=== PATIENT | female | born 1935 | race Caucasian/White ===

== ENCOUNTER 2018-05-30 15:28 | Inpatient (IN) | payer MEDICARE, MEDICAID ==
[~2018-05-30] VITALS: Ht 165.1 cm; Wt 72.6 kg
[2018-05-30] MEDS ORDERED: Sodium Chloride 500ML 550 ML IV SCH (15:45)
--- NOTE | 2018-05-30 16:01 | Emergency Room Report ---
History of Present Illness General Chief Complaint: Headache Source: Patient Present Illness HPI The patient presents with headache and possible seizure that occurred yesterday. Patient denies pain at this time. She does admit to falling but denies head trauma. She apparently has recurrent falls. Also she has an uncontrolled tremor. There was not tonic clonic activity during or after the fall. No incontinence. According to the nurse's notes she has a history of multiple falls due to involuntary movements. They're questioning whether she might have possible seizures. She has easy loss of balance. Apparently when she does complain about pain it's in the back of her head according to RN notes from SNF. No fevers, NVD, dysuria, constipation, chest pain, palpitations, dyspnea, rashes. History of anemia and hypothyroidism. She was admitted in 2016 for a intertrochanteric fracture of the hip (left). At that time the history stated that she had had intraventricular hemorrhage and subarachnoid hemorrhage in the past. Allergies: Coded Allergies: No Known Allergies (Unverified , 05/30/18) Patient History Past Medical History: see triage record, old chart reviewed Past Surgical History: other - hip fx Social History: Denies: smoking, alcohol use, drug use Social History Narrative [facility] Now: No Reviewed Nursing Documentation: PMH: Agreed; PSxH: Agreed Nursing Documentation-PMH Past Medical History: No History, Except For Review of Systems All Other Systems: negative except mentioned in HPI Physical Exam Vital Signs Date Time Temp Pulse Resp B/P (MAP) Pulse Ox O2 Delivery O2 Flow Rate FiO2 05/30/18 15:24 77 19 149/80 98 Room Air Sp02 EP Interpretation: reviewed, normal General Appearance: well appearing, no apparent distress, GCS 15 Head: normocephalic, atraumatic Eyes: bilateral eye normal inspection, bilateral eye PERRL, bilateral eye EOMI ENT: moist mucus membranes Neck: supple Respiratory: lungs clear, normal breath sounds Cardiovascular #1: regular rate, rhythm Cardiovascular #2: 2+ radial (R) Gastrointestinal: normal inspection, normal bowel sounds, non tender, no mass, non-distended Musculoskeletal: back normal, gait/station normal, normal range of motion Neurologic: filer and sander III-XII nml as tested, motor strength/tone normal, DTRs symmetric, sensory intact, speech normal, other - choreaform movements of all extrem with intention, oriented - X2 Psychiatric: mood/affect normal Skin: normal inspection, warm/dry Medical Decision Making Diagnostic Impression: Primary Impression: NSTEMI (non-ST elevated myocardial infarction) Additional Impressions: UTI (urinary tract infection) Qualified Codes: N39.0 - Urinary tract infection, site not specified Chorea Multiple falls Headache Qualified Codes: R51 - Headache ER Course Patient presents with unsteady gait falling episodes headache. Differential includes Parkinson's, cerebellar stroke, cerebellar bleed, other forms of chorea , electrolyte abnormality amongst others. Patient needs evaluation with CT, chest x-ray, EKG and labs. The patient is not stable to be at the living facility where she came from needs more extensive neurologic evaluation however we need to exclude medical emergencies at this time. EKG is normal sinus rhythm rate 69 no acute findings. CXR no infiltrates. Labs with normal WBC, sl elevated chloride, high h/h. Lab called with minimally elevated troponin. Aspirin and nitro-bid given. Contacted by Dr. Holder's office who sent patient in. Discussed with Dr. Rose. Patient admitted SDU. Needs repeat troponins, cardiac echo and neurologic evaluation. Laboratory Tests Test 05/30/18 16:00 White Blood Count 9.5 K/UL (4.8-10.8) Red Blood Count 5.23 M/UL (4.20-5.40) Hemoglobin 16.1 G/DL (12.0-16.0) H Hematocrit 47.9 % (37.0-47.0) H Mean Corpuscular Volume 92 FL (80-99) Mean Corpuscular Hemoglobin 30.7 PG (27.0-31.0) Mean Corpuscular Hemoglobin Concent 33.5 G/DL (32.0-36.0) Red Cell Distribution Width 11.6 % (11.6-14.8) Platelet Count 194 K/UL (150-450) Mean Platelet Volume 7.4 FL (6.5-10.1) Neutrophils (%) (Auto) 54.2 % (45.0-75.0) Lymphocytes (%) (Auto) 35.0 % (20.0-45.0) Monocytes (%) (Auto) 5.8 % (1.0-10.0) Eosinophils (%) (Auto) 4.0 % (0.0-3.0) H Basophils (%) (Auto) 1.1 % (0.0-2.0) Urine Color Pale yellow Urine Appearance Clear Urine pH 6.5 (4.5-8.0) Urine Specific [place] 1.010 (1.005-1.035) Urine Protein Negative (NEGATIVE) Urine Glucose (UA) Negative (NEGATIVE) Urine Ketones Negative (NEGATIVE) Urine Occult Blood Negative (NEGATIVE) Urine Nitrite Negative (NEGATIVE) Urine Bilirubin Negative (NEGATIVE) Urine Urobilinogen Normal MG/DL (0.0-1.0) Urine Leukocyte Esterase 3+ (NEGATIVE) H Urine RBC 2-4 /HPF (0 - 2) H Urine WBC 15-20 /HPF (0 - 2) H Urine Squamous Epithelial Cells Occasional /LPF Urine Bacteria Few /HPF (NONE) Sodium Level 144 MMOL/L (136-145) Potassium Level 4.0 MMOL/L (3.5-5.1) Chloride Level 108 MMOL/L (98-107) H Carbon Dioxide Level 27 MMOL/L (21-32) Anion Gap 9 mmol/L (5-15) Blood Urea Nitrogen 18 mg/dL (7-18) Creatinine 1.0 MG/DL (0.55-1.30) Estimate Glomerular Filtration Rate mL/min (>60) Glucose Level 93 MG/DL (74-106) Lactic Acid Level 1.20 mmol/L (0.4-2.0) Calcium Level 9.6 MG/DL (8.5-10.1) Total Bilirubin 0.7 MG/DL (0.2-1.0) Aspartate Amino Transferase (AST) 19 U/L (15-37) Alanine Aminotransferase (ALT) 27 U/L (12-78) Alkaline Phosphatase 85 U/L (46-116) Ammonia 16 umol/L (11-32) Total Creatine Kinase 116 U/L (26-308) Troponin I 0.061 ng/mL (0.000-0.056) Total Protein 7.2 G/DL (6.4-8.2) Albumin 3.7 G/DL (3.4-5.0) Globulin 3.5 g/dL Albumin/Globulin Ratio 1.1 (1.0-2.7) Thyroid Stimulating Hormone (TSH) 0.677 uiU/mL (0.358-3.740) Salicylates Level 0.2 ug/mL (2.8-20) L Urine Opiates Screen Negative (NEGATIVE) Acetaminophen Level < 2 MCG/ML (10-30) L Urine Barbiturates Screen Negative (NEGATIVE) Phencyclidine (PCP) Screen Negative (NEGATIVE) Urine Amphetamines Screen Negative (NEGATIVE) Urine Benzodiazepines Screen Negative (NEGATIVE) Urine Cocaine Screen Negative (NEGATIVE) Urine Marijuana (THC) Screen Negative (NEGATIVE) Serum Alcohol < 3 mg/dL EKG Diagnostic Results Rate: normal Rhythm: NSR ST Segments: no acute changes Rhythm Strip Diag. Results EP Interpretation: yes Rhythm: NSR, no PVC's, no ectopy Chest X-Ray Diagnostic Results Chest X-Ray Diagnostic Results : Chest X-Ray Ordered: Yes # of Views/Limited/Complete: 1 View Indication: Other EP Interpretation: Yes Interpretation: no effusion, no pneumothorax, other - R mid lung increased vega Impression: Other Electronically Signed by: Electronically signed by Tyler Tadeo MD CT/MRI/US Diagnostic Results CT/MRI/US Diagnostic Results : Imaging Test Ordered: head Impression chronic changes Last Vital Signs Date Time Temp Pulse Resp B/P (MAP) Pulse Ox O2 Delivery O2 Flow Rate FiO2 05/31/18 00:00 Room Air 05/31/18 00:00 97.8 64 20 118/53 (57) 93 97.8 Status: improved Disposition: ADMITTED INPATIENT Condition: Serious Tyler Tadeo M.D. May 30, 2018 16:01
[2018-05-30 16:34] LABS: APPEARANCE,URINE CLEAR; BASOPHILS % (AUTO) 1.1 % (0.0-2.0); BILIRUBIN, URINE NEGATIVE (NEGATIVE); COLOR,URINE PALE YELLOW; GLUCOSE, URINE (UA) NEGATIVE (NEGATIVE); HEMATOCRIT 47.9 % (37.0-47.0); HEMOGLOBIN 16.1 G/DL (12.0-16.0); KETONES,URINE NEGATIVE (NEGATIVE); LEUKOCYTE ESTERASE ,URINE 3+ (NEGATIVE); MEAN CORPUSCULAR VOLUME 92 FL (80-99); MONOCYTES % (AUTO) 5.8 % (1.0-10.0); NEUTROPHILS % (AUTO) 54.2 % (45.0-75.0); NITRITE,URINE NEGATIVE (NEGATIVE); PH,URINE 6.5 (4.5-8.0); PLATELET COUNT 194 K/UL (150-450); PROTEIN,URINE NEGATIVE (NEGATIVE); RED BLOOD COUNT 5.23 M/UL (4.20-5.40); RED CELL DISTRIBUTION WIDTH 11.6 % (11.6-14.8); UROBILINOGEN,URINE NORMAL MG/DL (0.0-1.0); WHITE BLOOD COUNT 9.5 K/UL (4.8-10.8)
--- NOTE | 2018-05-30 16:43 | Diagnostic Imaging Report ---
Indication: Chest pain Technique: One view of the chest Comparison: none Findings: Heart size is normal. The aorta is tortuous an ectatic. Upper mediastinum is unremarkable. Impression: No acute process
--- NOTE | 2018-05-30 16:43 | Diagnostic Imaging Report ---
Indications: Altered level consciousness and headache Technique: Spiral acquisitions obtained through the brain. Angled axial and coronal 5 x 5 mm slices were reconstructed. Total dose length product 1386.03 mGycm. CTDI vol(s) 70.38 mGy. Dose reduction achieved using automated exposure control Comparison: None. Findings: There is slight degradation of image degradation due to motion artifact. No acute intracranial hemorrhage or edema, mass effect, nor midline shift. There is age-related enlargement of the ventricles and extra axial CSF spaces. There is mild periventricular deep white matter low-attenuation consistent with chronic ischemic change. The mastoids are clear. There is evidence of prior bilateral cataract surgery. The sinuses are clear. Impression: Chronic and age-related changes. Negative for acute intracranial bleed or mass effect The CT scanner at [facility] is accredited by the [employer] and the scans are performed using protocols designed to limit radiation exposure to as low as reasonably achievable to attain images of sufficient resolution adequate for diagnostic evaluation.
[2018-05-30 16:50] LABS: ANION GAP 9 mmol/L (5-15); BLOOD UREA NITROGEN 18 mg/dL (7-18); CALCIUM 9.6 MG/DL (8.5-10.1); CARBON DIOXIDE 27 MMOL/L (21-32); CHLORIDE 108 MMOL/L (98-107); SODIUM 144 MMOL/L (136-145)
[2018-05-30 16:53] LABS: AMMONIA 16 umol/L (11-32)
[2018-05-30 17:00] VITALS: BP 126/64
[2018-05-30 17:05] LABS: ALANINE AMINOTRANSFERASE 27 U/L (12-78); ALBUMIN 3.7 G/DL (3.4-5.0); ALBUMIN/GLOBULIN RATIO 1.1 (1.0-2.7); ALKALINE PHOSPHATASE 85 U/L (46-116); ASPARTATE AMINO TRANSFERASE 19 U/L (15-37); BILIRUBIN,TOTAL 0.7 MG/DL (0.2-1.0); CREATINE KINASE 116 U/L (26-308)
[2018-05-30] MEDS ORDERED: Nitroglycerin 2% oint pkt TOPIC ONE (17:15)
[2018-05-30] MEDS ORDERED: cefTRIAXone 1 GM in D5W 55 ML IVPB ONE (18:45)
[2018-05-30 19:00] VITALS: BP 130/76
[2018-05-30 19:05] VITALS: BP 157/73
[2018-05-30] MEDS ORDERED: COLACE100 MG ORAL (19:13)
[2018-05-30] MEDS ORDERED: CALCIUM 600 +1 EAC2 PO (19:13)
[2018-05-30] MEDS ORDERED: LYRICA75 M1 ORAL (19:13)
[2018-05-30] MEDS ORDERED: IRON325 M1 PO (19:13)
[2018-05-30] MEDS ORDERED: LEVOTHYROXINE125 MCG ORAL (19:13)
[2018-05-30] MEDS ORDERED: PEPCID AC20 M2 PO (19:13)
[2018-05-30] MEDS ORDERED: NAPROXEN250 MG ORAL (19:24)
[2018-05-30] MEDS ORDERED: GERI-DRYL25 M1 PO (19:24)
[2018-05-30] MEDS ORDERED: BISACODYL5 MG RECTAL (19:24)
[2018-05-30] MEDS ORDERED: ACETAMINOPHEN325 M1 ORAL (19:24)
[2018-05-30] MEDS ORDERED: TRAZODONE HCL50 MG ORAL (19:24)
[2018-05-30] MEDS ORDERED: ZOFRAN4 M3 ORAL (19:24)
[2018-05-30] MEDS ORDERED: TYLENOL EXTRA500 MG ORAL (19:24)
[2018-05-30 20:00] VITALS: BP 157/73
[2018-05-30] MEDS ORDERED: TraZODone HCl 25 mg tablet ORAL PRN (20:15)
--- NOTE | 2018-05-30 20:15 | Consultation ---
History of Present Illness General Chief Complaint: Headache Present Illness Allergies: Coded Allergies: No Known Allergies (Unverified , 05/30/18) Medication History Scheduled Docusate Sodium* (Colace*), 100 MG ORAL TWICE A DAY, (Reported) Famotidine (Pepcid Ac), 20 MG PO Q12HR, (Reported) Levothyroxine Sodium* (Levothyroxine Sodium*), 125 MCG ORAL ACBREAKFAST, ( Reported) Pregabalin* (Lyrica*), 75 MG ORAL Q12HR, (Reported) Scheduled PRN Acetaminophen* (Tylenol Extra Strength*), 500 MG ORAL Q8H PRN for Prn Headache/ Temp > 101, (Reported) Acetaminophen* (Tylenol Extra Strength*), 500 MG ORAL Q8H PRN for For Pain, ( Reported) Acetaminophen* (Acetaminophen 325MG Tablet*), 650 MG ORAL Q6H PRN for Mild Pain/ Temp > 100.5, (Reported) Bisacodyl* (Dulcolax*), 10 MG RECTAL DAILY PRN for Constipation, (Reported) Diphenhydramine HCl (Humaira-Dryl), 25 MG PO QHS PRN for Allergic Rhinitis, ( Reported) Naproxen* (Naprosyn*), 500 MG ORAL TWICE A DAY PRN for For Pain, (Reported) Ondansetron* (Zofran*), 4 MG ORAL Q6H PRN for Nausea & Vomiting, (Reported) Trazodone Hcl* (Desyrel*), 50 MG ORAL BEDTIME PRN for Insomnia, (Reported) Miscellaneous Medications Calcium Carbonate/Vitamin D3 (Calcium 600 + Vit D 200 Tablet), 1 EACH PO, ( Reported) Ferrous Sulfate (Iron), 325 MG PO, (Reported) Patient History Healthcare decision maker Resuscitation status Advanced Directive on File Physical Exam Last 24 Hour Vital Signs Date Time Temp Pulse Resp B/P (MAP) Pulse Ox O2 Delivery O2 Flow Rate FiO2 05/30/18 19:24 74 18 130/76 98 Room Air 05/30/18 19:00 74 18 130/76 98 Room Air 05/30/18 17:51 149/80 05/30/18 17:00 69 18 126/64 98 Room Air 05/30/18 15:24 77 19 149/80 98 Room Air Laboratory Tests Test 05/30/18 16:00 White Blood Count 9.5 K/UL (4.8-10.8) Red Blood Count 5.23 M/UL (4.20-5.40) Hemoglobin 16.1 G/DL (12.0-16.0) H Hematocrit 47.9 % (37.0-47.0) H Mean Corpuscular Volume 92 FL (80-99) Mean Corpuscular Hemoglobin 30.7 PG (27.0-31.0) Mean Corpuscular Hemoglobin Concent 33.5 G/DL (32.0-36.0) Red Cell Distribution Width 11.6 % (11.6-14.8) Platelet Count 194 K/UL (150-450) Mean Platelet Volume 7.4 FL (6.5-10.1) Neutrophils (%) (Auto) 54.2 % (45.0-75.0) Lymphocytes (%) (Auto) 35.0 % (20.0-45.0) Monocytes (%) (Auto) 5.8 % (1.0-10.0) Eosinophils (%) (Auto) 4.0 % (0.0-3.0) H Basophils (%) (Auto) 1.1 % (0.0-2.0) Urine Color Pale yellow Urine Appearance Clear Urine pH 6.5 (4.5-8.0) Urine Specific [place] 1.010 (1.005-1.035) Urine Protein Negative (NEGATIVE) Urine Glucose (UA) Negative (NEGATIVE) Urine Ketones Negative (NEGATIVE) Urine Occult Blood Negative (NEGATIVE) Urine Nitrite Negative (NEGATIVE) Urine Bilirubin Negative (NEGATIVE) Urine Urobilinogen Normal MG/DL (0.0-1.0) Urine Leukocyte Esterase 3+ (NEGATIVE) H Urine RBC 2-4 /HPF (0 - 2) H Urine WBC 15-20 /HPF (0 - 2) H Urine Squamous Epithelial Cells Occasional /LPF Urine Bacteria Few /HPF (NONE) Sodium Level 144 MMOL/L (136-145) Potassium Level 4.0 MMOL/L (3.5-5.1) Chloride Level 108 MMOL/L (98-107) H Carbon Dioxide Level 27 MMOL/L (21-32) Anion Gap 9 mmol/L (5-15) Blood Urea Nitrogen 18 mg/dL (7-18) Creatinine 1.0 MG/DL (0.55-1.30) Estimat Glomerular Filtration Rate mL/min (>60) Glucose Level 93 MG/DL (74-106) Lactic Acid Level 1.20 mmol/L (0.4-2.0) Calcium Level 9.6 MG/DL (8.5-10.1) Total Bilirubin 0.7 MG/DL (0.2-1.0) Aspartate Amino Transf (AST/SGOT) 19 U/L (15-37) Alanine Aminotransferase (ALT/SGPT) 27 U/L (12-78) Alkaline Phosphatase 85 U/L (46-116) Ammonia 16 umol/L (11-32) Total Creatine Kinase 116 U/L (26-308) Troponin I 0.061 ng/mL (0.000-0.056) Total Protein 7.2 G/DL (6.4-8.2) Albumin 3.7 G/DL (3.4-5.0) Globulin 3.5 g/dL Albumin/Globulin Ratio 1.1 (1.0-2.7) Thyroid Stimulating Hormone (TSH) 0.677 uiU/mL (0.358-3.740) Salicylates Level 0.2 ug/mL (2.8-20) L Urine Opiates Screen Negative (NEGATIVE) Acetaminophen Level < 2 MCG/ML (10-30) L Urine Barbiturates Screen Negative (NEGATIVE) Phencyclidine (PCP) Screen Negative (NEGATIVE) Urine Amphetamines Screen Negative (NEGATIVE) Urine Benzodiazepines Screen Negative (NEGATIVE) Urine Cocaine Screen Negative (NEGATIVE) Urine Marijuana (THC) Screen Negative (NEGATIVE) Serum Alcohol < 3 mg/dL Height (Feet): 5 Height (Inches): 5.00 Weight (Pounds): 160 Medications Current Medications Medications (Trade) Dose Ordered Sig/Richard Route PRN Reason Start Time Stop Time Status Last Admin Dose Admin Sodium Chloride 550 ml @ 150 mls/hr Q3H40M IV 05/30/18 15:45 06/29/18 15:44 05/30/18 16:34 Billy Zamorano MD May 30, 2018 20:15
[2018-05-30] MEDS ORDERED: TraZODone 50mg tab ORAL PRN ×2 (20:30→22:00)
[2018-05-30] MEDS ORDERED: Acetaminophen 500mg (ES) tab ORAL PRN ×2 (22:00)
[2018-05-31] VITALS: BP 118/53
[2018-05-31 04:00] VITALS: BP 113/56
[2018-05-31 05:16] LABS: BASOPHILS % (AUTO) 0.8 % (0.0-2.0); EOSINOPHILS % (AUTO) 4.2 % (0.0-3.0); HEMOGLOBIN 14.9 G/DL (12.0-16.0); LYMPHOCYTES % (AUTO) 32.8 % (20.0-45.0); MEAN CORPUSCULAR VOLUME 90 FL (80-99); MONOCYTES % (AUTO) 7.2 % (1.0-10.0); PLATELET COUNT 179 K/UL (150-450); RED BLOOD COUNT 4.99 M/UL (4.20-5.40); RED CELL DISTRIBUTION WIDTH 11.6 % (11.6-14.8); WHITE BLOOD COUNT 8.7 K/UL (4.8-10.8)
[2018-05-31 05:37] LABS: ALANINE AMINOTRANSFERASE 19 U/L (12-78); ALBUMIN 3.1 G/DL (3.4-5.0); ALBUMIN/GLOBULIN RATIO 1.1 (1.0-2.7); ALKALINE PHOSPHATASE 62 U/L (46-116); ANION GAP 8 mmol/L (5-15); ASPARTATE AMINO TRANSFERASE 17 U/L (15-37); BILIRUBIN,TOTAL 0.6 MG/DL (0.2-1.0); BLOOD UREA NITROGEN 21 mg/dL (7-18); CALCIUM 8.4 MG/DL (8.5-10.1); CARBON DIOXIDE 26 MMOL/L (21-32); CHLORIDE 111 MMOL/L (98-107); CREATININE 1.1 MG/DL (0.55-1.30); POTASSIUM 4.1 MMOL/L (3.5-5.1); SODIUM 145 MMOL/L (136-145)
[2018-05-31] MEDS: Levothyroxine 125mcg tab ORAL SCH (06:20)
[2018-05-31 08:12] VITALS: BP 118/57
[2018-05-31] MEDS: Calcium Carbonate 500mg w/Vit D 200iu tab PO SCH (08:34)
[2018-05-31] MEDS: Docusate 100mg cap ORAL SCH ×2 (08:35→17:47)
[2018-05-31] MEDS: Lyrica 75mg cap ORAL SCH ×2 (08:35→21:15)
[2018-05-31 12:00] VITALS: BP 146/72
--- NOTE | 2018-05-31 13:48 | History and Physical ---
History of Present Illness General Date patient seen: May 31, 2018 Reason for Hospitalization: Headache Present Illness HPI 83 y/o female with a PMH of recurrent falls and hypothyroidism presents from [facility] for fall and "jerky movements". Patient states that she slid out of the bed but did not have any trauma to the head. Per correction, patient has been having recurrent falls and gait imbalance. Patient states that she has never been diagnosed with Parkinson's Disease. Reports headache 01/22. Denies n/v, f/c, cp, sob, abdominal pain, focal deficits. Allergies: Coded Allergies: No Known Allergies (Unverified , 05/30/18) Medication History Scheduled Docusate Sodium* (Colace*), 100 MG ORAL TWICE A DAY, (Reported) Famotidine (Pepcid Ac), 20 MG PO Q12HR, (Reported) Levothyroxine Sodium* (Levothyroxine Sodium*), 125 MCG ORAL ACBREAKFAST, ( Reported) Pregabalin* (Lyrica*), 75 MG ORAL Q12HR, (Reported) Scheduled PRN Acetaminophen* (Tylenol Extra Strength*), 500 MG ORAL Q8H PRN for Prn Headache/ Temp > 101, (Reported) Acetaminophen* (Tylenol Extra Strength*), 500 MG ORAL Q8H PRN for For Pain, ( Reported) Acetaminophen* (Acetaminophen 325MG Tablet*), 650 MG ORAL Q6H PRN for Mild Pain/ Temp > 100.5, (Reported) Bisacodyl* (Dulcolax*), 10 MG RECTAL DAILY PRN for Constipation, (Reported) Diphenhydramine HCl (Humaira-Dryl), 25 MG PO QHS PRN for Allergic Rhinitis, ( Reported) Naproxen* (Naprosyn*), 500 MG ORAL TWICE A DAY PRN for For Pain, (Reported) Ondansetron* (Zofran*), 4 MG ORAL Q6H PRN for Nausea & Vomiting, (Reported) Trazodone Hcl* (Desyrel*), 50 MG ORAL BEDTIME PRN for Insomnia, (Reported) Miscellaneous Medications Calcium Carbonate/Vitamin D3 (Calcium 600 + Vit D 200 Tablet), 1 EACH PO, ( Reported) Ferrous Sulfate (Iron), 325 MG PO, (Reported) Patient History Limited by: age History Provided By: Patient, Medical Record, Caregiver Healthcare decision maker Resuscitation status Full Code Advanced Directive on File Review of Systems All Other Systems: negative except mentioned in HPI Physical Exam General Appearance: no apparent distress, alert HEENT: normocephalic, atraumatic Neck: non-tender, normal alignment, supple Respiratory/Chest: chest wall non-tender, lungs clear, normal breath sounds Cardiovascular/Chest: normal peripheral pulses, normal rate, regular rhythm Abdomen: normal bowel sounds, non tender, soft Skin Exam: normal pigmentation, warm/dry Neurologic: news assistant II-XII grossly normal, no motor/sensory deficits, alert, oriented x 3 Last 24 Hour Vital Signs Date Time Temp Pulse Resp B/P (MAP) Pulse Ox O2 Delivery O2 Flow Rate FiO2 05/31/18 09:34 97.7 05/31/18 08:35 97.7 05/31/18 08:12 97.7 70 18 118/57 (77) 95 97.7 05/31/18 08:11 Room Air 05/31/18 08:00 73 05/31/18 04:04 77 05/31/18 04:00 Room Air 05/31/18 04:00 97.6 71 18 113/56 (75) 92 97.6 05/31/18 00:00 Room Air 05/31/18 00:00 97.8 64 20 118/53 (74) 93 97.8 05/30/18 23:27 71 05/30/18 20:00 97.6 81 20 157/73 (101) 97 97.6 05/30/18 19:37 76 05/30/18 19:24 74 18 130/76 98 Room Air 05/30/18 19:10 Room Air 05/30/18 19:05 97.6 81 20 157/73 (101) 97 97.6 05/30/18 19:00 74 18 130/76 98 Room Air 05/30/18 17:51 149/80 05/30/18 17:00 69 18 126/64 98 Room Air 05/30/18 15:24 77 19 149/80 98 Room Air Intake and Output 05/30/18 05/31/18 19:00 07:00 Intake Total 500 ml 50 ml Output Total 100 ml Balance 400 ml 50 ml Intake Oral 50 ml IV Total 500 ml Output Urine Total 100 ml # Voids 1 3 Laboratory Tests Test 05/30/18 16:00 05/31/18 04:04 White Blood Count 9.5 K/UL (4.8-10.8) 8.7 K/UL (4.8-10.8) Red Blood Count 5.23 M/UL (4.20-5.40) 4.99 M/UL (4.20-5.40) Hemoglobin 16.1 G/DL (12.0-16.0) H 14.9 G/DL (12.0-16.0) Hematocrit 47.9 % (37.0-47.0) H 45.0 % (37.0-47.0) Mean Corpuscular Volume 92 FL (80-99) 90 FL (80-99) Mean Corpuscular Hemoglobin 30.7 PG (27.0-31.0) 29.8 PG (27.0-31.0) Mean Corpuscular Hemoglobin Concent 33.5 G/DL (32.0-36.0) 33.0 G/DL (32.0-36.0) Red Cell Distribution Width 11.6 % (11.6-14.8) 11.6 % (11.6-14.8) Platelet Count 194 K/UL (150-450) 179 K/UL (150-450) Mean Platelet Volume 7.4 FL (6.5-10.1) 7.4 FL (6.5-10.1) Neutrophils (%) (Auto) 54.2 % (45.0-75.0) 55.0 % (45.0-75.0) Lymphocytes (%) (Auto) 35.0 % (20.0-45.0) 32.8 % (20.0-45.0) Monocytes (%) (Auto) 5.8 % (1.0-10.0) 7.2 % (1.0-10.0) Eosinophils (%) (Auto) 4.0 % (0.0-3.0) H 4.2 % (0.0-3.0) H Basophils (%) (Auto) 1.1 % (0.0-2.0) 0.8 % (0.0-2.0) Urine Color Pale yellow Urine Appearance Clear Urine pH 6.5 (4.5-8.0) Urine Specific [place] 1.010 (1.005-1.035) Urine Protein Negative (NEGATIVE) Urine Glucose (UA) Negative (NEGATIVE) Urine Ketones Negative (NEGATIVE) Urine Occult Blood Negative (NEGATIVE) Urine Nitrite Negative (NEGATIVE) Urine Bilirubin Negative (NEGATIVE) Urine Urobilinogen Normal MG/DL (0.0-1.0) Urine Leukocyte Esterase 3+ (NEGATIVE) H Urine RBC 2-4 /HPF (0 - 2) H Urine WBC 15-20 /HPF (0 - 2) H Urine Squamous Epithelial Cells Occasional /LPF Urine Bacteria Few /HPF (NONE) Sodium Level 144 MMOL/L (136-145) 145 MMOL/L (136-145) Potassium Level 4.0 MMOL/L (3.5-5.1) 4.1 MMOL/L (3.5-5.1) Chloride Level 108 MMOL/L (98-107) H 111 MMOL/L (98-107) H Carbon Dioxide Level 27 MMOL/L (21-32) 26 MMOL/L (21-32) Anion Gap 9 mmol/L (5-15) 8 mmol/L (5-15) Blood Urea Nitrogen 18 mg/dL (7-18) 21 mg/dL (7-18) H Creatinine 1.0 MG/DL (0.55-1.30) 1.1 MG/DL (0.55-1.30) Estimat Glomerular Filtration Rate mL/min (>60) mL/min (>60) Glucose Level 93 MG/DL (74-106) 99 MG/DL (74-106) Lactic Acid Level 1.20 mmol/L (0.4-2.0) Calcium Level 9.6 MG/DL (8.5-10.1) 8.4 MG/DL (8.5-10.1) L Total Bilirubin 0.7 MG/DL (0.2-1.0) 0.6 MG/DL (0.2-1.0) Aspartate Amino Transf (AST/SGOT) 19 U/L (15-37) 17 U/L (15-37) Alanine Aminotransferase (ALT/SGPT) 27 U/L (12-78) 19 U/L (12-78) Alkaline Phosphatase 85 U/L (46-116) 62 U/L (46-116) Ammonia 16 umol/L (11-32) Total Creatine Kinase 116 U/L (26-308) Troponin I 0.061 ng/mL (0.000-0.056) 0.068 ng/mL (0.000-0.056) Total Protein 7.2 G/DL (6.4-8.2) 6.0 G/DL (6.4-8.2) L Albumin 3.7 G/DL (3.4-5.0) 3.1 G/DL (3.4-5.0) L Globulin 3.5 g/dL 2.9 g/dL Albumin/Globulin Ratio 1.1 (1.0-2.7) 1.1 (1.0-2.7) Thyroid Stimulating Hormone (TSH) 0.677 uiU/mL (0.358-3.740) Salicylates Level 0.2 ug/mL (2.8-20) L Urine Opiates Screen Negative (NEGATIVE) Acetaminophen Level < 2 MCG/ML (10-30) L Urine Barbiturates Screen Negative (NEGATIVE) Phencyclidine (PCP) Screen Negative (NEGATIVE) Urine Amphetamines Screen Negative (NEGATIVE) Urine Benzodiazepines Screen Negative (NEGATIVE) Urine Cocaine Screen Negative (NEGATIVE) Urine Marijuana (THC) Screen Negative (NEGATIVE) Serum Alcohol < 3 mg/dL Magnesium Level 1.9 MG/DL (1.8-2.4) Microbiology Date/Time Source Procedure Growth Status 05/30/18 16:00 Urine,Clean Catch Urine Culture - Preliminary NO GROWTH Resulted Height (Feet): 5 Height (Inches): 5.00 Weight (Pounds): 160 Medications Current Medications Medications (Trade) Dose Ordered Sig/Richard Route PRN Reason Start Time Stop Time Status Last Admin Dose Admin Acetaminophen (Tylenol) 500 mg Q8H PRN ORAL For Pain 05/30/18 22:00 06/29/18 21:59 05/31/18 06:20 Acetaminophen (Tylenol) 500 mg Q8H PRN ORAL Prn Headache/Temp > 101 05/30/18 22:00 06/29/18 21:59 Acetaminophen (Tylenol) 650 mg Q6H PRN ORAL Mild Pain/Temp > 100.5 05/30/18 22:00 06/29/18 21:59 Calcium Carbonate (OsCal D) 1 tab DAILY PO 05/31/18 09:00 06/30/18 08:59 05/31/18 08:34 Ceftriaxone Sodium 1 gm/ Dextrose 55 ml @ 110 mls/hr Q24H IVPB 05/31/18 18:00 06/07/18 17:59 Docusate Sodium (Colace) 100 mg TWICE A DAY ORAL 05/31/18 09:00 06/30/18 08:59 05/31/18 08:35 Famotidine (Pepcid) 20 mg Q12HR PRN ORAL heartburn 05/30/18 22:00 06/29/18 21:59 Levothyroxine Sodium (Synthroid) 125 mcg ACBREAKFAST ORAL 05/31/18 06:30 06/30/18 06:29 05/31/18 06:20 Ondansetron HCl (Zofran) 4 mg Q6H PRN ORAL Nausea & Vomiting 05/30/18 22:00 06/29/18 21:59 Pregabalin (Lyrica) 75 mg Q12HR ORAL 05/31/18 09:00 06/30/18 08:59 05/31/18 08:35 Trazodone HCl (Desyrel) 50 mg BEDTIME PRN ORAL anxiety 05/30/18 20:30 06/29/18 20:14 Trazodone HCl (Desyrel) 50 mg BEDTIME PRN ORAL Insomnia 05/30/18 22:00 06/29/18 21:59 Assessment/Plan Problem List: (1) Jerky body movements ICD Codes: R25.8 - Other abnormal involuntary movements SNOMED: 737477519 (2) Headache ICD Codes: R51 - Headache SNOMED: 40954279 Qualifiers: Qualified Codes: R51 - Headache (3) UTI (urinary tract infection) ICD Codes: N39.0 - Urinary tract infection, site not specified SNOMED: 15144385 Qualifiers: Qualified Codes: N39.0 - Urinary tract infection, site not specified (4) NSTEMI (non-ST elevated myocardial infarction) ICD Codes: I21.4 - Non-ST elevation (NSTEMI) myocardial infarction SNOMED: 119623616 (5) Multiple falls ICD Codes: R29.6 - Repeated falls SNOMED: 649818597 (6) Hypothyroidism ICD Codes: E03.9 - Hypothyroidism, unspecified SNOMED: 04069886 Status: stable, progressing Assessment/Plan Admit to inpatient - Neurology consulted - CT brain unremarkable for acute pathology - F/u EEG - PT eval for gait - R/o PD - Cardiology consulted - s/p ASA 325mg x 1 - EKG NSR - Trend trops -- stable, elevated - F/u ECHO - no chest pain - may need outpatient stress test - Empiric IV ceftriaxone - F/u urine cx - Continue home synthroid and other meds - Pain control and supportive care DVT Prophylaxis: SCD, HSQ Code Status: Full Hospital Classification Declaration: Based on this initial evaluation, and depending on the patient's clinical course, I anticipate that this patient will require hospitalization for 2-3 days for UTI, fall and close respiratory/ hemodynamic monitoring. Disposition: Once the patient is stable to leave the hospital, I anticipate the patient will likely be discharged to the following environment: [facility] I spent 72 minutes on this patient's case, and 51 minutes were dedicated to counseling and/or care coordination. Discussed with patient/family, nursing staff, SW/CM, neurology, cardiology regarding clinical status, treatment course , and disposition planning. Time of note may not reflect time of encounter. Ivis Sun NP May 31, 2018 13:48
--- NOTE | 2018-05-31 15:02 | Consultation ---
Consult Note Consult Note NEUROLOGY CONSULTATION: Full note dictated #[id number] 83 y/o, RH, CF with PH of hypothyroidism for many years. For the last 5 years she has also had frequent falls and her speech has been slurred. She was hospitalized for tremulousness, jerky movements and unsteadiness on her feet. On being evaluated in the ER she was noted to have a UTI. She also has headaches about 1-2 times per month which respond to Tylenol. ON EXAM: Disoriented to place. Mild memory problems. Mild dysarthria. Mild anomia. Right hemiparesis/ Left LE paresis Brisker DTRs in right UE compared to left. R>L paraparetic gait. 7-8 Hz tremor which increases with effort. IMPRESSION: Frequent falls due to right hemiparesis and left LE paresis. 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 MCI. Unclear what the abnormal movements represented - now resolved. REC: Brain MRI Carotid duplex. Labs for MCI PT/OT to mobilize Elvia Franco M.D., M.S.P.H. ELVIA FRANCO May 31, 2018 15:02
[2018-05-31 16:00] VITALS: BP 153/74
[2018-05-31] MEDS: cefTRIAXone 1 GM in D5W 55 ML IVPB SCH (17:47)
--- NOTE | 2018-05-31 18:15 | Progress Note ---
DATE: 05/31/2018 SUBJECTIVE: The patient is in bed, no acute distress. She is calm. The patient was able to answer the questions appropriately, is difficult hearing. She takes on trazodone for insomnia and anxiety. MENTAL STATUS EXAMINATION: The patient is alert and oriented times self, place, and situation. Mood is dysphoric. Affect is constricted, congruent with mood. Thought process is concrete. Thought content, no suicidal or homicidal ideation. ASSESSMENT: 1. Major depressive disorder. 2. Encephalopathy due to general medical condition. PLAN: 1. The patient will be continued on trazodone 50 mg. 2. Provide the patient with supportive therapy and reality orientation. Billy Zamorano M.D. DR: SILVIA JOB#: [id number] CC:
--- NOTE | 2018-05-31 19:17 | Consultation ---
History of Present Illness General Date patient seen: May 31, 2018 Time patient seen: 18:54 Chief Complaint: Headache Present Illness HPI 83 year old female with headach, weakness. No travel, no smoking, no sick contacts, blood sugars and blood pressure normal. Chest x ray clear, CT brain negative for bleed. Echo with normal function but JVP 2.2 cm. Echocardiogram is normal. Allergies: Coded Allergies: No Known Allergies (Unverified , 05/30/18) Medication History Scheduled Docusate Sodium* (Colace*), 100 MG ORAL TWICE A DAY, (Reported) Famotidine (Pepcid Ac), 20 MG PO Q12HR, (Reported) Levothyroxine Sodium* (Levothyroxine Sodium*), 125 MCG ORAL ACBREAKFAST, ( Reported) Pregabalin* (Lyrica*), 75 MG ORAL Q12HR, (Reported) Scheduled PRN Acetaminophen* (Tylenol Extra Strength*), 500 MG ORAL Q8H PRN for Prn Headache/ Temp > 101, (Reported) Acetaminophen* (Tylenol Extra Strength*), 500 MG ORAL Q8H PRN for For Pain, ( Reported) Acetaminophen* (Acetaminophen 325MG Tablet*), 650 MG ORAL Q6H PRN for Mild Pain/ Temp > 100.5, (Reported) Bisacodyl* (Dulcolax*), 10 MG RECTAL DAILY PRN for Constipation, (Reported) Diphenhydramine HCl (Humaira-Dryl), 25 MG PO QHS PRN for Allergic Rhinitis, ( Reported) Naproxen* (Naprosyn*), 500 MG ORAL TWICE A DAY PRN for For Pain, (Reported) Ondansetron* (Zofran*), 4 MG ORAL Q6H PRN for Nausea & Vomiting, (Reported) Trazodone Hcl* (Desyrel*), 50 MG ORAL BEDTIME PRN for Insomnia, (Reported) Miscellaneous Medications Calcium Carbonate/Vitamin D3 (Calcium 600 + Vit D 200 Tablet), 1 EACH PO, ( Reported) Ferrous Sulfate (Iron), 325 MG PO, (Reported) Patient History Healthcare decision maker Resuscitation status Full Code Advanced Directive on File Review of Systems Constitutional: Reports: chills, sweats, fever Eye: Reports: no symptoms ENT: Reports: no symptoms Respiratory: Reports: no symptoms Cardiovascular: Reports: no symptoms Gastrointestinal: Reports: no symptoms Genitourinary: Reports: no symptoms Musculoskeletal: Reports: no symptoms Skin: Reports: no symptoms Endocrine: Reports: no symptoms Hematologic/Lymphatic: Reports: no symptoms Physical Exam General Appearance: no apparent distress, alert Lines, tubes and drains: peripheral HEENT: normocephalic, atraumatic, anicteric Neck: non-tender, normal alignment, supple, normal inspection Respiratory/Chest: chest wall non-tender, lungs clear Cardiovascular/Chest: normal peripheral pulses, regular rhythm Abdomen: normal bowel sounds Extremities: normal range of motion 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 Last 24 Hour Vital Signs Date Time Temp Pulse Resp B/P (MAP) Pulse Ox O2 Delivery O2 Flow Rate FiO2 05/31/18 18:46 98.0 05/31/18 17:47 98.0 05/31/18 16:00 83 05/31/18 16:00 98.0 73 17 153/74 (100) 95 98.0 05/31/18 16:00 Room Air 05/31/18 12:00 75 05/31/18 12:00 Room Air 05/31/18 12:00 98.0 94 18 146/72 (96) 93 98.0 05/31/18 09:34 97.7 05/31/18 08:35 97.7 05/31/18 08:12 97.7 70 18 118/57 (77) 95 97.7 05/31/18 08:11 Room Air 05/31/18 08:00 73 05/31/18 04:04 77 05/31/18 04:00 Room Air 05/31/18 04:00 97.6 71 18 113/56 (75) 92 97.6 05/31/18 00:00 Room Air 05/31/18 00:00 97.8 64 20 118/53 (74) 93 97.8 05/30/18 23:27 71 05/30/18 20:00 97.6 81 20 157/73 (101) 97 97.6 05/30/18 19:37 76 05/30/18 19:24 74 18 130/76 98 Room Air Intake and Output 05/30/18 05/31/18 19:00 07:00 Intake Total 500 ml 50 ml Output Total 100 ml Balance 400 ml 50 ml Intake Oral 50 ml IV Total 500 ml Output Urine Total 100 ml # Voids 1 3 Laboratory Tests Test 05/31/18 04:04 05/31/18 16:45 White Blood Count 8.7 K/UL (4.8-10.8) Red Blood Count 4.99 M/UL (4.20-5.40) Hemoglobin 14.9 G/DL (12.0-16.0) Hematocrit 45.0 % (37.0-47.0) Mean Corpuscular Volume 90 FL (80-99) Mean Corpuscular Hemoglobin 29.8 PG (27.0-31.0) Mean Corpuscular Hemoglobin Concent 33.0 G/DL (32.0-36.0) Red Cell Distribution Width 11.6 % (11.6-14.8) Platelet Count 179 K/UL (150-450) Mean Platelet Volume 7.4 FL (6.5-10.1) Neutrophils (%) (Auto) 55.0 % (45.0-75.0) Lymphocytes (%) (Auto) 32.8 % (20.0-45.0) Monocytes (%) (Auto) 7.2 % (1.0-10.0) Eosinophils (%) (Auto) 4.2 % (0.0-3.0) H Basophils (%) (Auto) 0.8 % (0.0-2.0) Sodium Level 145 MMOL/L (136-145) Potassium Level 4.1 MMOL/L (3.5-5.1) Chloride Level 111 MMOL/L (98-107) H Carbon Dioxide Level 26 MMOL/L (21-32) Anion Gap 8 mmol/L (5-15) Blood Urea Nitrogen 21 mg/dL (7-18) H Creatinine 1.1 MG/DL (0.55-1.30) Estimat Glomerular Filtration Rate mL/min (>60) Glucose Level 99 MG/DL (74-106) Calcium Level 8.4 MG/DL (8.5-10.1) L Magnesium Level 1.9 MG/DL (1.8-2.4) Total Bilirubin 0.6 MG/DL (0.2-1.0) Aspartate Amino Transf (AST/SGOT) 17 U/L (15-37) Alanine Aminotransferase (ALT/SGPT) 19 U/L (12-78) Alkaline Phosphatase 62 U/L (46-116) Troponin I 0.068 ng/mL (0.000-0.056) Total Protein 6.0 G/DL (6.4-8.2) L Albumin 3.1 G/DL (3.4-5.0) L Globulin 2.9 g/dL Albumin/Globulin Ratio 1.1 (1.0-2.7) Erythrocyte Sedimentation Rate 5.0 MM/HR (0-30) Hemoglobin A1c 5.8 % (4.3-6.0) Vitamin B12 Level 735 PG/ML (193-986) Vitamin D 25-Hydroxy Pending 25-Hydroxy Vitamin D2 Pending 25-Hydroxy Vitamin D3 Pending Folate 10.0 NG/ML (8.6-58.9) Thyroid Stimulating Hormone (TSH) 0.456 uiU/mL (0.358-3.740) Rapid Plasma Reagin Pending Height (Feet): 5 Height (Inches): 5.00 Weight (Pounds): 160 Medications Current Medications Medications (Trade) Dose Ordered Sig/Richard Route PRN Reason Start Time Stop Time Status Last Admin Dose Admin Acetaminophen (Tylenol) 500 mg Q8H PRN ORAL For Pain 05/30/18 22:00 06/29/18 21:59 05/31/18 06:20 Acetaminophen (Tylenol) 500 mg Q8H PRN ORAL Prn Headache/Temp > 101 05/30/18 22:00 06/29/18 21:59 Acetaminophen (Tylenol) 650 mg Q6H PRN ORAL Mild Pain/Temp > 100.5 05/30/18 22:00 06/29/18 21:59 05/31/18 17:47 Calcium Carbonate (OsCal D) 1 tab DAILY PO 05/31/18 09:00 06/30/18 08:59 05/31/18 08:34 Ceftriaxone Sodium 1 gm/ Dextrose 55 ml @ 110 mls/hr Q24H IVPB 05/31/18 18:00 06/07/18 17:59 05/31/18 17:47 Docusate Sodium (Colace) 100 mg TWICE A DAY ORAL 05/31/18 09:00 06/30/18 08:59 05/31/18 17:47 Famotidine (Pepcid) 20 mg Q12HR PRN ORAL heartburn 05/30/18 22:00 06/29/18 21:59 Levothyroxine Sodium (Synthroid) 125 mcg ACBREAKFAST ORAL 05/31/18 06:30 06/30/18 06:29 05/31/18 06:20 Ondansetron HCl (Zofran) 4 mg Q6H PRN ORAL Nausea & Vomiting 05/30/18 22:00 06/29/18 21:59 Pregabalin (Lyrica) 75 mg Q12HR ORAL 05/31/18 09:00 06/30/18 08:59 05/31/18 08:35 Trazodone HCl (Desyrel) 50 mg BEDTIME PRN ORAL anxiety 05/30/18 20:30 06/29/18 20:14 Trazodone HCl (Desyrel) 50 mg BEDTIME PRN ORAL Insomnia 05/30/18 22:00 06/29/18 21:59 Assessment/Plan Status: stable Assessment/Plan Assessment (1) Jerky body movements (2) Headache (3) UTI (urinary tract infection) (4) NSTEMI (non-ST elevated myocardial infarction) (5) Multiple falls (6) Hypothyroidism Plan Serial EKG/Troponin Aspirin Echocardiogram Outpatient stress test Rocephin for UTI Echo with normal function. MRI brain Carotid US EEG Physical therapy, ambulate Tyler Bonds M.D. May 31, 2018 19:17
[2018-05-31 20:00] VITALS: BP 132/70
--- NOTE | 2018-05-31 22:15 | Consultation ---
DATE OF CONSULTATION: 05/31/2018 NEUROLOGY CONSULTATION CONSULTING PHYSICIAN: Stalin Franco M.D. REQUESTING PHYSICIAN: Shawna Holder M.D. HISTORY: Ms. Vaishnavi Plata is an 83-year-old, right-handed, lady, who does have a past history of hypothyroidism for numerous years. For the last 5 years, she has also had frequent falls and has noticed that her speech has been slurred. She was hospitalized for some abnormal tremulous movements, jerky movements, and unsteadiness on her feet yesterday. On being evaluated in the emergency room, she was noted to have a urinary tract infection. She also complained of headaches and says that she has headaches approximately once or twice a month, which usually last for few hours and respond exceedingly well to Tylenol. The headaches usually in are the form of a pressure-like sensation in the front of her head. She denies any weakness on one side or the other, numbness on one side or the other, problems with language, problems with vision, or other neurological problems. PAST MEDICAL HISTORY: Significant for hypothyroidism and frequent falls for the last 5 years. FAMILY HISTORY: Nothing significant. PERSONAL HISTORY: [facility]: [facility] [place] [facility]. 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 Habits: She denies the use of alcohol, tobacco, or illicit drugs. PRESENT MEDICATIONS: Ceftriaxone, DSS, Lyrica 75 mg bid, Os-Anthony, Synthroid, Tylenol p.r.n., Pepcid p.r.n., Zofran p.r.n., and trazodone p.r.n. PHYSICAL EXAMINATION: GENERAL: She is a well-developed, well-nourished, pleasant lady, lying in bed, in no acute distress. VITAL SIGNS: Pulse 75/minute, blood pressure 146/72 mmHg, respirations 18/minute, and temperature 98 degrees Fahrenheit. HEAD: Normocephalic and atraumatic. EENT: Examination benign. NECK: No neck rigidity was observed. SPINE: Cervical, thoracic, and lumbosacral spine revealed no tenderness, no paraspinal muscle spasm, but significant decrease in range of motion. NEUROLOGICAL EXAMINATION: MENTAL STATUS EXAMINATION: She was awake and alert. She was oriented to self and date, but did not know where she was located. She was able to recall 3/3 words immediately after 1 minute and after 3 minutes on the second trial. She was able to remember Presidents, Trump through Ej, but could not remember presidents prior to that. Her mathematical skills were good. Her visuospatial function was preserved. SPEECH: She had a mild dysarthria. LANGUAGE: She had no aphasia, but did have an anomia for low-frequency words. CRANIAL NERVE EXAMINATION: II: The visual jacques were intact on confrontation testing. III, IV & : The external ocular movements were full and the pupils 3 mm in diameter, equal, round, regular, and reactive to light. V: She had normal facial sensations and the temporales, masseters, and pterygoids functioned normally. VII: She had a mild right seventh central facial paresis. VIII: She was able to hear well bilaterally and had no nystagmus. IX: The palate moved symmetrically on phonation. X: She had no hoarseness of voice. XI: The sternocleidomastoids and trapezii function normally. XII: The tongue was in the midline without any fasciculations or atrophy. MOTOR SYSTEM: The tone was minimally increased on the right side with a mild degree of spasticity. Examination of muscle mass revealed some wasting of the distal hand and foot muscles. Examination of power revealed G 5/5 power except for G 4+/5 power in the right finger extensors, G 4-/5 power in the right iliopsoas, G 4+/5 power in the left iliopsoas. SENSORY EXAMINATION: She had intact sensations to pinprick, light touch, and graphesthesia. COORDINATION: She performed well on [id number] testing. [id number] testing could not be for performed. REFLEXES: 2+ on the right and 1+ on the left at the biceps, triceps, and brachioradialis and 0 at both knees and ankles. The plantar responses were flexor bilaterally. STANCE: She had a minimally wide-based, but stable stance with support on both sides. GAIT: She walked with a minimally wide-based and right greater than left paraparetic gait with support. ABNORMAL MOVEMENTS: Tremor (7-8 Hz): G 0/4 increasing to G 1/4 with effort. DIAGNOSTIC IMPRESSION: 1. Ms. Vaishnavi Plata is an 83-year-old, right-handed, lady, who does have a past history of hypothyroidism, who over the last 5 years, has had frequent falls and slurring of speech. She was hospitalized for tremulousness, jerky movements, and unsteadiness on her feet and was discovered to have a urinary tract infection. The abnormal movements have now resolved. She also has had headaches off and on, which are relatively mild and usually disappear within a few hours after taking Tylenol. 2. On neurological examination, at this time, she is disoriented to place, has problems with recent and remote memory, has a mild dysarthria, mild anomia, right hemiparesis involving the face, upper and lower extremities, left lower extremity paresis involving the proximal muscles, a brisk deep tendon reflexes on the right side compared to the left in the upper extremities with loss of deep tendon reflexes in the lower extremities, right greater than left paraparetic gait, and 7-8 Hz tremor, which increases with effort. 3. Laboratory data obtained thus far have revealed that the patient has a relatively normal CBC. The chemistry panel is relatively normal. The TSH is normal. The urinalysis reveals 3+ leukocyte esterase, 2-4 RBCs, and 15-20 WBCs per high-power field. 4. 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 5. 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 6. She also exhibits signs of mild cognitive impairment. 7. It is unclear if her abnormal movements represented myoclonus or rigors, but they have now resolved. RECOMMENDATIONS: 1. Agree with management thus far. 2. An MRI of the brain will be ordered to evaluate the patient for intracranial pathology. 3. A cerebrovascular noninvasive profile will be ordered to evaluate the patient for hemodynamically significant carotid disease. 4. The patient should be worked up thoroughly for treatable causes of mild cognitive impairment. 5. Physical and occupational therapy should be started to mobilize the patient Thank you for entrusting me with the care of Ms. Plata. I shall follow her with you. Stalin Franco M.D., M.S.P.H. DR: PAULETTE JOB#: [id number] MTDD
[2018-06-01] VITALS: BP 130/65
[2018-06-01 04:00] VITALS: BP 147/74
[2018-06-01 05:17] LABS: BASOPHILS % (AUTO) 0.5 % (0.0-2.0); HEMATOCRIT 45.8 % (37.0-47.0); LYMPHOCYTES % (AUTO) 32.7 % (20.0-45.0); MEAN CORPUSCULAR VOLUME 90 FL (80-99); MONOCYTES % (AUTO) 7.6 % (1.0-10.0); NEUTROPHILS % (AUTO) 55.2 % (45.0-75.0); PLATELET COUNT 174 K/UL (150-450); RED CELL DISTRIBUTION WIDTH 11.6 % (11.6-14.8); WHITE BLOOD COUNT 9.2 K/UL (4.8-10.8)
[2018-06-01 05:31] LABS: ANION GAP 10 mmol/L (5-15); BLOOD UREA NITROGEN 15 mg/dL (7-18); CALCIUM 8.8 MG/DL (8.5-10.1); CARBON DIOXIDE 26 MMOL/L (21-32); CHLORIDE 110 MMOL/L (98-107); CREATININE 0.9 MG/DL (0.55-1.30); POTASSIUM 3.8 MMOL/L (3.5-5.1); SODIUM 145 MMOL/L (136-145)
[2018-06-01] MEDS: Levothyroxine 125mcg tab ORAL SCH (06:20)
[2018-06-01 08:00] VITALS: BP 144/81
[2018-06-01] MEDS: Calcium Carbonate 500mg w/Vit D 200iu tab PO SCH (08:38)
[2018-06-01] MEDS: Docusate 100mg cap ORAL SCH ×2 (08:38→18:00)
[2018-06-01] MEDS: Lyrica 75mg cap ORAL SCH ×2 (08:39→20:53)
--- NOTE | 2018-06-01 10:59 | Cardiology Progress Note ---
Assessment/Plan Status: stable Assessment/Plan Assessment (1) Jerky body movements (2) Headache (3) UTI (urinary tract infection) (4) NSTEMI (non-ST elevated myocardial infarction) (5) Multiple falls (6) Hypothyroidism Plan Serial EKG/Troponin Aspirin Echocardiogram - normal LV function Outpatient stress test Rocephin for UTI CT no acute pathology MRI brain Carotid US EEG Physical therapy Subjective Cardiovascular: Reports: no symptoms Respiratory: Reports: no symptoms Gastrointestinal/Abdominal: Reports: no symptoms Genitourinary: Reports: no symptoms Subjective No acute events, no complaints, vitals stable. Objective Last 24 Hour Vital Signs Date Time Temp Pulse Resp B/P (MAP) Pulse Ox O2 Delivery O2 Flow Rate FiO2 06/01/18 09:38 97.2 06/01/18 08:39 97.2 06/01/18 08:00 97.2 69 18 144/81 (102) 93 97.2 77 06/01/18 08:00 Room Air 06/01/18 07:52 82 06/01/18 04:00 Room Air 06/01/18 04:00 97.9 69 18 147/74 (98) 95 97.9 06/01/18 03:50 76 06/01/18 00:02 71 06/01/18 00:00 Room Air 06/01/18 00:00 97.4 70 16 130/65 (86) 93 97.4 05/31/18 20:00 Room Air 05/31/18 20:00 97.2 70 20 132/70 (90) 95 97.2 05/31/18 19:43 86 05/31/18 18:46 98.0 05/31/18 17:47 98.0 05/31/18 16:00 83 05/31/18 16:00 98.0 73 17 153/74 (100) 95 98.0 05/31/18 16:00 Room Air 05/31/18 12:00 75 05/31/18 12:00 Room Air 05/31/18 12:00 98.0 94 18 146/72 (96) 93 98.0 General Appearance: no apparent distress, lethargic EENT: PERRL/EOMI, normal ENT inspection Neck: non-tender, normal alignment, supple, no JVD Rhythm: NSR Cardiovascular: normal peripheral pulses, normal rate Respiratory/Chest: chest wall non-tender, lungs clear Abdomen: normal bowel sounds, non tender Extremities: normal range of motion, non-tender 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, no motor/sensory deficits Intake and Output 05/31/18 06/01/18 19:00 07:00 Intake Total 105 ml 40 ml Output Total 4 ml 700 ml Balance 101 ml -660 ml Intake Oral 50 ml 40 ml IV Total 55 ml Output Urine Total 4 ml 700 ml Laboratory Tests Test 05/31/18 16:45 06/01/18 03:42 Erythrocyte Sedimentation Rate 5.0 MM/HR (0-30) Hemoglobin A1c 5.8 % (4.3-6.0) Vitamin B12 Level 735 PG/ML (193-986) Vitamin D 25-Hydroxy Pending 25-Hydroxy Vitamin D2 Pending 25-Hydroxy Vitamin D3 Pending Folate 10.0 NG/ML (8.6-58.9) Thyroid Stimulating Hormone (TSH) 0.456 uiU/mL (0.358-3.740) Rapid Plasma Reagin Pending White Blood Count 9.2 K/UL (4.8-10.8) Red Blood Count 5.10 M/UL (4.20-5.40) Hemoglobin 15.0 G/DL (12.0-16.0) Hematocrit 45.8 % (37.0-47.0) Mean Corpuscular Volume 90 FL (80-99) Mean Corpuscular Hemoglobin 29.4 PG (27.0-31.0) Mean Corpuscular Hemoglobin Concent 32.8 G/DL (32.0-36.0) Red Cell Distribution Width 11.6 % (11.6-14.8) Platelet Count 174 K/UL (150-450) Mean Platelet Volume 7.7 FL (6.5-10.1) Neutrophils (%) (Auto) 55.2 % (45.0-75.0) Lymphocytes (%) (Auto) 32.7 % (20.0-45.0) Monocytes (%) (Auto) 7.6 % (1.0-10.0) Eosinophils (%) (Auto) 4.0 % (0.0-3.0) H Basophils (%) (Auto) 0.5 % (0.0-2.0) Sodium Level 145 MMOL/L (136-145) Potassium Level 3.8 MMOL/L (3.5-5.1) Chloride Level 110 MMOL/L (98-107) H Carbon Dioxide Level 26 MMOL/L (21-32) Anion Gap 10 mmol/L (5-15) Blood Urea Nitrogen 15 mg/dL (7-18) Creatinine 0.9 MG/DL (0.55-1.30) Estimat Glomerular Filtration Rate mL/min (>60) Glucose Level 95 MG/DL (74-106) Calcium Level 8.8 MG/DL (8.5-10.1) Microbiology Date/Time Source Procedure Growth Status 05/30/18 16:35 Nasal Nares 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 Complete 05/30/18 16:35 Rectum - Final NO CARBAPENEM-RESISTANT ENTEROBACTERI... Complete Tyler Bonds M.D. Jun 01, 2018 10:59
[2018-06-01 12:00] VITALS: BP 128/71
--- NOTE | 2018-06-01 15:37 | Neurology Progress Note ---
Interim History Interim History Interim History Ms. Plata feels about the same as yesterday. She was unable to lie down for the MRI of the brain yesterday. She is quite forgetful. She did not remember me seeing her yesterday but then when I started to examine her she remembered the test we did yesterday. She denies any abnormal movements. She denies any new neurologic symptoms. She is eager to go home. Review of Systems Neuro Review of Systems Benign. Objective Physical Exam Last Vital Signs Date Time Temp Pulse Resp B/P (MAP) Pulse Ox O2 Delivery O2 Flow Rate FiO2 06/01/18 12:59 62 06/01/18 12:00 Room Air 06/01/18 12:00 97.3 20 128/71 (90) 96 97.3 Laboratory Tests Test 05/31/18 16:45 06/01/18 03:42 Erythrocyte Sedimentation Rate 5.0 MM/HR (0-30) Hemoglobin A1c 5.8 % (4.3-6.0) Vitamin B12 Level 735 PG/ML (193-986) Vitamin D 25-Hydroxy Pending 25-Hydroxy Vitamin D2 Pending 25-Hydroxy Vitamin D3 Pending Folate 10.0 NG/ML (8.6-58.9) Thyroid Stimulating Hormone (TSH) 0.456 uiU/mL (0.358-3.740) Rapid Plasma Reagin Pending White Blood Count 9.2 K/UL (4.8-10.8) Red Blood Count 5.10 M/UL (4.20-5.40) Hemoglobin 15.0 G/DL (12.0-16.0) Hematocrit 45.8 % (37.0-47.0) Mean Corpuscular Volume 90 FL (80-99) Mean Corpuscular Hemoglobin 29.4 PG (27.0-31.0) Mean Corpuscular Hemoglobin Concent 32.8 G/DL (32.0-36.0) Red Cell Distribution Width 11.6 % (11.6-14.8) Platelet Count 174 K/UL (150-450) Mean Platelet Volume 7.7 FL (6.5-10.1) Neutrophils (%) (Auto) 55.2 % (45.0-75.0) Lymphocytes (%) (Auto) 32.7 % (20.0-45.0) Monocytes (%) (Auto) 7.6 % (1.0-10.0) Eosinophils (%) (Auto) 4.0 % (0.0-3.0) H Basophils (%) (Auto) 0.5 % (0.0-2.0) Sodium Level 145 MMOL/L (136-145) Potassium Level 3.8 MMOL/L (3.5-5.1) Chloride Level 110 MMOL/L (98-107) H Carbon Dioxide Level 26 MMOL/L (21-32) Anion Gap 10 mmol/L (5-15) Blood Urea Nitrogen 15 mg/dL (7-18) Creatinine 0.9 MG/DL (0.55-1.30) Estimat Glomerular Filtration Rate mL/min (>60) Glucose Level 95 MG/DL (74-106) Calcium Level 8.8 MG/DL (8.5-10.1) Neurologic Exam Objective PHYSICAL EXAMINATION: GENERAL: She is a well-developed, well-nourished, pleasant lady, lying in bed, in no acute distress. HEAD: Normocephalic and atraumatic. EENT: Examination benign. NECK: No neck rigidity was observed. SPINE: Cervical, thoracic, and lumbosacral spine revealed no tenderness, no paraspinal muscle spasm, but significant decrease in range of motion. NEUROLOGICAL EXAMINATION: MENTAL STATUS EXAMINATION: She was awake and alert. She was oriented to self, month and year but not the exact date, and did not know where she was located. She was able to recall 3/3 words immediately after 1 minute and after 3 minutes on the second trial. She was able to remember Presidents, Trump through Ej, but could not remember presidents prior to that. Her mathematical skills were good. Her visuospatial function was preserved. SPEECH: She had a mild dysarthria. LANGUAGE: She had no aphasia, but did have an anomia for low-frequency words. CRANIAL NERVE EXAMINATION: II: The visual jacques were intact on confrontation testing. III, IV & : The external ocular movements were full and the pupils 3 mm in diameter, equal, round, regular, and reactive to light. V: She had normal facial sensations and the temporales, masseters, and pterygoids functioned normally. VII: She had a mild right seventh central facial paresis. VIII: She was able to hear well bilaterally and had no nystagmus. IX: The palate moved symmetrically on phonation. X: She had no hoarseness of voice. XI: The sternocleidomastoids and trapezii function normally. XII: The tongue was in the midline without any fasciculations or atrophy. MOTOR SYSTEM: The tone was minimally increased on the right side with a mild degree of spasticity. Examination of muscle mass revealed some wasting of the distal hand and foot muscles. Examination of power revealed G 5/5 power except for G 4+/5 power in the right finger extensors, G 4-/5 power in the right iliopsoas, G 4+/5 power in the left iliopsoas. SENSORY EXAMINATION: She had intact sensations to pinprick, light touch, and graphesthesia. COORDINATION: She performed well on xalmcn-qc-inpc testing. Kkeq-kl-rrwe testing could not be for performed. REFLEXES: 2+ on the right and 1+ on the left at the biceps, triceps, and brachioradialis and 0 at both knees and ankles. The plantar responses were flexor bilaterally. STANCE: She had a minimally wide-based, but stable stance with support on both sides. GAIT: She walked with a minimally wide-based and right greater than left paraparetic gait with support. ABNORMAL MOVEMENTS: Tremor (7-8 Hz): G 0/4 increasing to G 1/4 with effort. Impression/Recommendations Diagnostic Impression 1. Ms. Vaishnavi Plata is an 83-year-old, right-handed, lady, who does have a past history of hypothyroidism, who over the last 5 years, has had frequent falls and slurring of speech. She was hospitalized for tremulousness, jerky movements, and unsteadiness on her feet and was discovered to have a urinary tract infection. The abnormal movements have now resolved. She also has had headaches off and on, which are relatively mild and usually disappear within a few hours after taking Tylenol. 2. She feels about the same as yesterday. She was unable to lie down for the MRI of the brain yesterday. She is quite forgetful. She did not remember me seeing her yesterday but then when I started to examine her she remembered the test we did yesterday. She denies any abnormal movements. She denies any new neurologic symptoms. She is eager to go home. 3. On neurological examination, at this time, she is disoriented to the exact date and place, has problems with recent and remote memory, has a mild dysarthria, mild anomia, right hemiparesis involving the face, upper and lower extremities, left lower extremity paresis involving the proximal muscles, a brisk deep tendon reflexes on the right side compared to the left in the upper extremities with loss of deep tendon reflexes in the lower extremities, right greater than left paraparetic gait, and 7-8 Hz tremor, which increases with effort. 4. Laboratory data obtained thus far have revealed that the patient has a relatively normal CBC. The chemistry panel is relatively normal. The TSH is normal. The urinalysis reveals 3+ leukocyte esterase, 2-4 RBCs, and 15-20 WBCs per high-power field. 5. Further laboratory tests revealed a normal B12 level, folate level, and HbA1C. 6. The CT of the brain reveals atrophy and deep white matter changes. 7. She was unable to tolerate a MRI of the brain. 8. The EEG done on 05/31/18 revealed a moderate encephalopathy but no inter- ictal phenomena. 9. 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 10. 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 11. The mild cognitive impairment may be related to a primary degenerative process. 12. It is unclear if her abnormal movements represented myoclonus or rigors, but they have now resolved. Recommendations 1. Continue present management. 2. Await cerebrovascular noninvasive profile to evaluate the patient for hemodynamically significant carotid disease. 3. Physical and occupational therapy should to mobilize the patient Stalin Franco M.D., M.S.P.STALIN BRUNSON Jun 01, 2018 15:37
--- NOTE | 2018-06-01 15:51 | General Progress Note ---
Assessment/Plan Problem List: (1) Jerky body movements ICD Codes: R25.8 - Other abnormal involuntary movements SNOMED: 215419567 (2) Headache ICD Codes: R51 - Headache SNOMED: 27183804 Qualifiers: Qualified Codes: R51 - Headache (3) UTI (urinary tract infection) ICD Codes: N39.0 - Urinary tract infection, site not specified SNOMED: 03063264 Qualifiers: Qualified Codes: N39.0 - Urinary tract infection, site not specified (4) NSTEMI (non-ST elevated myocardial infarction) ICD Codes: I21.4 - Non-ST elevation (NSTEMI) myocardial infarction SNOMED: 194454542 (5) Multiple falls ICD Codes: R29.6 - Repeated falls SNOMED: 673946519 (6) Hypothyroidism ICD Codes: E03.9 - Hypothyroidism, unspecified SNOMED: 11126793 (7) Toxic metabolic encephalopathy ICD Codes: G92 - Toxic encephalopathy SNOMED: 036489791 Status: stable, progressing Assessment/Plan - Neurology consulted, appreciate rec's - CT brain unremarkable for acute pathology - F/u EEG -- moderate encephalopathy - F/u carotid U/S - PT eval for gait disorder due to LS spine disease - Cardiology consulted, appreciate rec's - s/p ASA 325mg x 1 - EKG NSR - Trend trops -- stable, elevated - F/u ECHO -- normal LV function - no chest pain - will need outpatient stress test - Empiric IV ceftriaxone - F/u urine cx -- <10,000 colonies - Continue home synthroid and other meds - Pain control and supportive care DC to SNF if carotid U/S is unremarkable DVT Prophylaxis: HSQ Code Status: Full Hospital Classification Declaration: Based on this initial evaluation, and depending on the patient's clinical course, I anticipate that this patient will require hospitalization for 2-3 days for UTI, fall and close respiratory/ hemodynamic monitoring. Disposition: Once the patient is stable to leave the hospital, I anticipate the patient will likely be discharged to the following environment: [facility] I spent 32 minutes on this patient's case, and 21 minutes were dedicated to counseling and/or care coordination. Discussed with patient/family, nursing staff, SW/CM, neurology, cardiology regarding clinical status, treatment course , and disposition planning. Time of note may not reflect time of encounter. Subjective Date patient seen: Jun 01, 2018 Allergies: Coded Allergies: No Known Allergies (Unverified , 05/30/18) Subjective - AF, HDS - ECHO with normal LV function - EEG prelim seen by abnormal - patient requesting to go home. denies cp, sob Objective Last 24 Hour Vital Signs Date Time Temp Pulse Resp B/P (MAP) Pulse Ox O2 Delivery O2 Flow Rate FiO2 06/01/18 12:59 62 06/01/18 12:00 Room Air 06/01/18 12:00 97.3 70 20 128/71 (90) 96 97.3 06/01/18 09:38 97.2 06/01/18 08:39 97.2 06/01/18 08:00 97.2 69 18 144/81 (102) 93 97.2 77 06/01/18 08:00 Room Air 06/01/18 07:52 82 06/01/18 04:00 Room Air 06/01/18 04:00 97.9 69 18 147/74 (98) 95 97.9 06/01/18 03:50 76 06/01/18 00:02 71 06/01/18 00:00 Room Air 06/01/18 00:00 97.4 70 16 130/65 (86) 93 97.4 05/31/18 20:00 Room Air 05/31/18 20:00 97.2 70 20 132/70 (90) 95 97.2 05/31/18 19:43 86 05/31/18 18:46 98.0 05/31/18 17:47 98.0 05/31/18 16:00 83 05/31/18 16:00 98.0 73 17 153/74 (100) 95 98.0 05/31/18 16:00 Room Air Intake and Output 05/31/18 06/01/18 19:00 07:00 Intake Total 105 ml 40 ml Output Total 4 ml 700 ml Balance 101 ml -660 ml Intake Oral 50 ml 40 ml IV Total 55 ml Output Urine Total 4 ml 700 ml Laboratory Tests 05/31/18 16:45: Erythrocyte Sedimentation Rate 5.0, Hemoglobin A1c 5.8, Vitamin B12 Level 735, Vitamin D 25-Hydroxy [Pending], 25-Hydroxy Vitamin D2 [Pending], 25-Hydroxy Vitamin D3 [Pending], Folate 10.0, Thyroid Stimulating Hormone (TSH) 0.456, Rapid Plasma Reagin [Pending] 06/01/18 03:42: White Blood Count 9.2, Red Blood Count 5.10, Hemoglobin 15.0, Hematocrit 45.8, Mean Corpuscular Volume 90, Mean Corpuscular Hemoglobin 29.4, Mean Corpuscular Hemoglobin Concent 32.8, Red Cell Distribution Width 11.6, Platelet Count 174, Mean Platelet Volume 7.7, Neutrophils (%) (Auto) 55.2, Lymphocytes (%) (Auto) 32.7, Monocytes (%) (Auto) 7.6, Eosinophils (%) (Auto) 4.0H, Basophils (%) (Auto ) 0.5, Sodium Level 145, Potassium Level 3.8, Chloride Level 110H, Carbon Dioxide Level 26, Anion Gap 10, Blood Urea Nitrogen 15, Creatinine 0.9, Estimat Glomerular Filtration Rate , Glucose Level 95, Calcium Level 8.8 Height (Feet): 5 Height (Inches): 5.00 Weight (Pounds): 160 General Appearance: no apparent distress, alert EENT: PERRL/EOMI, normal ENT inspection Neck: non-tender, normal alignment, supple Cardiovascular: normal peripheral pulses, normal rate, regular rhythm Respiratory/Chest: chest wall non-tender, lungs clear, normal breath sounds Abdomen: normal bowel sounds, non tender, soft Extremities: normal range of motion, non-tender 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
[2018-06-01 16:00] VITALS: BP 139/69
--- NOTE | 2018-06-01 16:15 | Electroencephalogram ---
DATE OF PROCEDURE: 05/31/2018 REQUESTING PHYSICIAN: Shawna Holder M.D. READING PHYSICIAN: Stalin Franco M.D. PROCEDURE PERFORMED: Electroencephalogram. HISTORY: This EEG was performed on an 83-year-old lady with history of unsteadiness on her feet, frequent falls, slurring of speech, and an episode of tremulousness and jerking movements prior to this hospitalization. The purpose of this EEG was to evaluate the patient for the degree and type of cerebral dysfunction and to exclude ongoing ictal or interictal phenomena. TECHNICAL NOTE: This EEG was performed on a [employer] with electrodes placed on the scalp according to the International 10-20 system. [id number]-mg-rpkmu and fjool-oz-vzg montages were used. The EEG was technically satisfactory and was performed in the awake and drowsy states. OBSERVATIONS: In the best awake state, the background activity consisted of 7-7.5 Hz posterior rhythmic theta activity. Drowsiness was characterized by irregular 4-5 Hz theta with intermixed delta frequencies. During awake-drowsy transitions, bilateral frontotemporal polymorphic delta activity sometimes occurring in brief runs was seen. No definite focal abnormalities or epileptiform discharges were noted. IMPRESSION: This is an abnormal EEG characterized by: 1. Slowing of the background in the 7-7.5 Hz theta range in the best awake state. 2. The presence of bilateral frontotemporal polymorphic delta activity sometimes occurring in brief runs seen during awake-drowsy transitions. COMMENT: This study is consistent with an encephalopathy of a moderate degree. Please note that no interictal discharges were seen during this EEG. Stalin Franco M.D., M.S.P.H. DR: Kaylyn JOB#: [id number] [facility] HOSPITALLibra
[2018-06-01] MEDS ORDERED: Tubing IV Secondary IV ONE (17:17)
[2018-06-01] MEDS ORDERED: NS 275ml ONE (17:17)
[2018-06-01] MEDS: cefTRIAXone 1 GM in D5W 55 ML IVPB SCH (18:00)
[2018-06-01 20:00] VITALS: BP 160/100
[2018-06-02] VITALS: BP 137/59
[2018-06-02 04:00] VITALS: BP 144/72
[2018-06-02] MEDS: Levothyroxine 125mcg tab ORAL SCH (05:52)
[2018-06-02 08:00] VITALS: BP 130/71
[2018-06-02] MEDS: Docusate 100mg cap ORAL SCH ×2 (08:40→17:47)
[2018-06-02] MEDS: Calcium Carbonate 500mg w/Vit D 200iu tab PO SCH (08:40)
[2018-06-02] MEDS: Lyrica 75mg cap ORAL SCH ×2 (08:41→21:04)
[2018-06-02 12:00] VITALS: BP 123/59
--- NOTE | 2018-06-02 12:11 | Neurology Progress Note ---
Interim History Interim History Interim History Ms. Plata feels about the same as yesterday. She is still quite forgetful. She remembers me but cannot remember my name. She denies any abnormal movements. She denies any new neurologic symptoms. She is eager to go home. Review of Systems Neuro Review of Systems Benign. Objective Physical Exam Last Vital Signs Date Time Temp Pulse Resp B/P (MAP) Pulse Ox O2 Delivery O2 Flow Rate FiO2 06/02/18 09:40 97.0 06/02/18 08:00 76 18 130/71 (90) 97 06/02/18 08:00 Room Air Neurologic Exam Objective PHYSICAL EXAMINATION: GENERAL: She is a well-developed, well-nourished, pleasant lady, lying in bed, in no acute distress. HEAD: Normocephalic and atraumatic. EENT: Examination benign. NECK: No neck rigidity was observed. SPINE: Cervical, thoracic, and lumbosacral spine revealed no tenderness, no paraspinal muscle spasm, but significant decrease in range of motion. NEUROLOGICAL EXAMINATION: MENTAL STATUS EXAMINATION: She was awake and alert. She was oriented to self, date, and hospital but did not know the name of the hospital. She was able to recall 3/3 words immediately after 1 minute and after 3 minutes on the second trial. She was able to remember Presidents, Trump through Ej, but could not remember presidents prior to that. Her mathematical skills were good. Her visuospatial function was preserved. SPEECH: She had a mild dysarthria. LANGUAGE: She had no aphasia, but did have an anomia for low-frequency words. CRANIAL NERVE EXAMINATION: II: The visual jacques were intact on confrontation testing. III, IV & : The external ocular movements were full and the pupils 3 mm in diameter, equal, round, regular, and reactive to light. V: She had normal facial sensations and the temporales, masseters, and pterygoids functioned normally. VII: She had a mild right seventh central facial paresis. VIII: She was able to hear well bilaterally and had no nystagmus. IX: The palate moved symmetrically on phonation. X: She had no hoarseness of voice. XI: The sternocleidomastoids and trapezii function normally. XII: The tongue was in the midline without any fasciculations or atrophy. MOTOR SYSTEM: The tone was minimally increased on the right side with a mild degree of spasticity. Examination of muscle mass revealed some wasting of the distal hand and foot muscles. Examination of power revealed G 5/5 power except for G 4+/5 power in the right finger extensors, G 4-/5 power in the right iliopsoas, G 4+/5 power in the left iliopsoas. SENSORY EXAMINATION: She had intact sensations to pinprick, light touch, and graphesthesia. COORDINATION: She performed well on mfmtpl-hd-uugn testing. Upjt-mr-uobi testing could not be for performed. REFLEXES: 2+ on the right and 1+ on the left at the biceps, triceps, and brachioradialis and 0 at both knees and ankles. The plantar responses were flexor bilaterally. STANCE: She had a minimally wide-based, but stable stance with support on both sides. GAIT: She walked with a minimally wide-based and right greater than left paraparetic gait with support. ABNORMAL MOVEMENTS: Tremor (7-8 Hz): G 0/4 increasing to G 1/4 with effort. Impression/Recommendations Diagnostic Impression 1. Ms. Vaishnavi Plata is an 83-year-old, right-handed, lady, who does have a past history of hypothyroidism, who over the last 5 years, has had frequent falls and slurring of speech. She was hospitalized for tremulousness, jerky movements, and unsteadiness on her feet and was discovered to have a urinary tract infection. The abnormal movements have now resolved. She also has had headaches off and on, which are relatively mild and usually disappear within a few hours after taking Tylenol. 2. She feels about the same as yesterday. She is still quite forgetful. She remembers me but cannot remember my name. She denies any abnormal movements. She denies any new neurologic symptoms. She is eager to go home. 3. On neurological examination, at this time, she is disoriented to the place, has problems with recent and remote memory, has a mild dysarthria, mild anomia, right hemiparesis involving the face, upper and lower extremities, left lower extremity paresis involving the proximal muscles, a brisk deep tendon reflexes on the right side compared to the left in the upper extremities with loss of deep tendon reflexes in the lower extremities, right greater than left paraparetic gait, and 7-8 Hz tremor, which increases with effort. 4. Laboratory data obtained thus far have revealed that the patient has a relatively normal CBC. The chemistry panel is relatively normal. The TSH is normal. The urinalysis reveals 3+ leukocyte esterase, 2-4 RBCs, and 15-20 WBCs per high-power field. 5. Further laboratory tests revealed a normal B12 level, folate level, and HbA1C. 6. The CT of the brain reveals atrophy and deep white matter changes. 7. She was unable to tolerate a MRI of the brain. 8. The EEG done on 05/31/18 revealed a moderate encephalopathy but no inter- ictal phenomena. 9. The Carotid Duplex revealed 10-30% bilateral ICA stenosis. 10. 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 11. 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 11. The mild cognitive impairment may be related to a primary degenerative process. 13. It is unclear if her abnormal movements represented myoclonus or rigors, but they have now resolved. Recommendations 1. Continue present management. 2. Physical and occupational therapy should to mobilize the patient. 3. Agree with discharge home. Elvia Doll M.D., M.S.P.Bulmaro. ELVIA DOLL Jun 02, 2018 12:11
--- NOTE | 2018-06-02 12:58 | General Progress Note ---
Assessment/Plan Problem List: (1) Jerky body movements ICD Codes: R25.8 - Other abnormal involuntary movements SNOMED: 177444606 (2) Headache ICD Codes: R51 - Headache SNOMED: 38631364 Qualifiers: Qualified Codes: R51 - Headache (3) UTI (urinary tract infection) ICD Codes: N39.0 - Urinary tract infection, site not specified SNOMED: 82697531 Qualifiers: Qualified Codes: N39.0 - Urinary tract infection, site not specified (4) NSTEMI (non-ST elevated myocardial infarction) ICD Codes: I21.4 - Non-ST elevation (NSTEMI) myocardial infarction SNOMED: 334824799 (5) Multiple falls ICD Codes: R29.6 - Repeated falls SNOMED: 537534635 (6) Hypothyroidism ICD Codes: E03.9 - Hypothyroidism, unspecified SNOMED: 01980892 (7) Toxic metabolic encephalopathy ICD Codes: G92 - Toxic encephalopathy SNOMED: 835908595 Status: stable, progressing Assessment/Plan - Neurology consulted, appreciate rec's - CT brain unremarkable for acute pathology - F/u EEG -- moderate encephalopathy - F/u carotid U/S - PT eval for gait disorder due to LS spine disease - Cardiology consulted, appreciate rec's - s/p ASA 325mg x 1 - EKG NSR - Trend trops -- stable, elevated - F/u ECHO -- normal LV function - Carotid U/S unremarkable - no chest pain - will need outpatient stress test - Empiric IV ceftriaxone - F/u urine cx -- <10,000 colonies - Continue home synthroid and other meds - Pain control and supportive care Cleared for discharge but no bed available. DC in AM to [facility] once bed is available. DVT Prophylaxis: HSQ Code Status: Full Hospital Classification Declaration: Based on this initial evaluation, and depending on the patient's clinical course, I anticipate that this patient will require hospitalization for 2-3 days for UTI, fall and close respiratory/ hemodynamic monitoring. Disposition: Once the patient is stable to leave the hospital, I anticipate the patient will likely be discharged to the following environment: [facility] I spent 32 minutes on this patient's case, and 21 minutes were dedicated to counseling and/or care coordination. Discussed with patient/family, nursing staff, JAMES/RUBI, neurology, cardiology regarding clinical status, treatment course , and disposition planning. Time of note may not reflect time of encounter. Subjective Date patient seen: Jun 02, 2018 Allergies: Coded Allergies: No Known Allergies (Unverified , 05/30/18) Subjective no acute events overnight AF, HDS cleared to go home but no bed available at [facility] Objective Last 24 Hour Vital Signs Date Time Temp Pulse Resp B/P (MAP) Pulse Ox O2 Delivery O2 Flow Rate FiO2 06/02/18 12:00 97.2 70 20 123/59 (80) 92 97.2 06/02/18 09:40 97.0 06/02/18 08:41 97.0 06/02/18 08:00 97.0 76 18 130/71 (90) 97 97.0 06/02/18 08:00 81 06/02/18 08:00 Room Air 06/02/18 04:00 74 06/02/18 04:00 Room Air 06/02/18 04:00 98.4 69 20 144/72 (96) 92 98.4 06/02/18 00:00 97.9 68 19 137/59 (85) 93 97.9 06/02/18 00:00 63 06/02/18 00:00 Room Air 06/01/18 20:00 70 06/01/18 20:00 Room Air 06/01/18 20:00 97.9 86 20 160/100 (120) 93 97.9 06/01/18 16:00 Room Air 06/01/18 16:00 98.1 68 19 139/69 (92) 97 98.1 06/01/18 16:00 77 06/01/18 12:59 62 Intake and Output 06/01/18 06/02/18 19:00 07:00 Intake Total 355 ml 50 ml Output Total 350 ml 300 ml Balance 5 ml -250 ml Intake Oral 300 ml 50 ml IV Total 55 ml Output Urine Total 350 ml 300 ml Height (Feet): 5 Height (Inches): 5.00 Weight (Pounds): 160 General Appearance: no apparent distress, alert EENT: PERRL/EOMI, normal ENT inspection Neck: non-tender, normal alignment, supple Cardiovascular: normal peripheral pulses, normal rate, regular rhythm Respiratory/Chest: chest wall non-tender, lungs clear, normal breath sounds Abdomen: normal bowel sounds, non tender, soft Extremities: normal range of motion, non-tender 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
--- NOTE | 2018-06-02 15:04 | Cardiology Progress Note ---
Assessment/Plan Status: stable Assessment/Plan Assessment (1) Jerky body movements (2) Headache (3) UTI (urinary tract infection) (4) NSTEMI (non-ST elevated myocardial infarction) (5) Multiple falls (6) Hypothyroidism Plan Serial EKG/Troponin Aspirin Echocardiogram - normal LV function Carotid US unremarkable Outpatient stress test Rocephin for UTI CT no acute pathology MRI brain unable to do EEG Physical therapy D/c to SNF Subjective Cardiovascular: Reports: no symptoms Respiratory: Reports: no symptoms Gastrointestinal/Abdominal: Reports: no symptoms Genitourinary: Reports: no symptoms Subjective No acute events, no complaints, vitals stable. Carotid US unremarkable, unable to do MRI. Patient wants to go home Objective Last 24 Hour Vital Signs Date Time Temp Pulse Resp B/P (MAP) Pulse Ox O2 Delivery O2 Flow Rate FiO2 06/02/18 12:00 97.2 70 20 123/59 (80) 92 97.2 06/02/18 12:00 Room Air 06/02/18 12:00 77 06/02/18 09:40 97.0 06/02/18 08:41 97.0 06/02/18 08:00 97.0 76 18 130/71 (90) 97 97.0 06/02/18 08:00 81 06/02/18 08:00 Room Air 06/02/18 04:00 74 06/02/18 04:00 Room Air 06/02/18 04:00 98.4 69 20 144/72 (96) 92 98.4 06/02/18 00:00 97.9 68 19 137/59 (85) 93 97.9 06/02/18 00:00 63 06/02/18 00:00 Room Air 06/01/18 20:00 70 06/01/18 20:00 Room Air 06/01/18 20:00 97.9 86 20 160/100 (120) 93 97.9 06/01/18 16:00 Room Air 06/01/18 16:00 98.1 68 19 139/69 (92) 97 98.1 06/01/18 16:00 77 General Appearance: no apparent distress, alert EENT: PERRL/EOMI, normal ENT inspection Neck: non-tender, normal alignment, no JVD Rhythm: NSR, PVCs Cardiovascular: normal rate, regular rhythm Respiratory/Chest: chest wall non-tender, lungs clear Abdomen: normal bowel sounds, non tender Extremities: normal range of motion, non-tender 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 Complete 05/30/18 16:35 Rectum - Final NO CARBAPENEM-RESISTANT ENTEROBACTERI... Complete Tyler Bonds M.D. Jun 02, 2018 15:04
[2018-06-02 16:00] VITALS: BP 128/73
[2018-06-02] MEDS ORDERED: cefTRIAXone 1 GM in D5W 55 ML IVPB SCH (18:00)
[2018-06-02] MEDS ORDERED: Acetaminophen 500mg (ES) tab ORAL PRN ×2 (18:29→22:00)
[2018-06-02 20:00] VITALS: BP 121/57
[2018-06-02] MEDS ORDERED: TraZODone 50mg tab ORAL PRN ×2 (21:00)
[2018-06-03] VITALS: BP 115/57
[2018-06-03 04:00] VITALS: BP 107/50
[2018-06-03] MEDS ORDERED: Levothyroxine 125mcg tab ORAL SCH (06:30)
[2018-06-03 08:00] VITALS: BP 109/50
[2018-06-03] MEDS: Lyrica 75mg cap ORAL SCH (08:33)
[2018-06-03] MEDS: Docusate 100mg cap ORAL SCH (08:33)
[2018-06-03] MEDS ORDERED: Calcium Carbonate 500mg w/Vit D 200iu tab PO SCH (09:00)
--- NOTE | 2018-06-03 11:32 | Cardiology Progress Note ---
Assessment/Plan Status: stable Assessment/Plan Assessment (1) Jerky body movements (2) Headache (3) UTI (urinary tract infection) (4) NSTEMI (non-ST elevated myocardial infarction) (5) Multiple falls (6) Hypothyroidism Plan Serial EKG/Troponin Aspirin Echocardiogram - normal LV function Carotid US unremarkable Outpatient stress test Rocephin for UTI CT no acute pathology MRI brain unable to do EEG Physical therapy D/c to SNF Subjective Cardiovascular: Reports: no symptoms Respiratory: Reports: no symptoms Gastrointestinal/Abdominal: Reports: no symptoms Genitourinary: Reports: no symptoms Subjective No acute events, no complaints, vitals stable. Carotid US unremarkable, unable to do MRI. Patient wants to go home Objective Last 24 Hour Vital Signs Date Time Temp Pulse Resp B/P (MAP) Pulse Ox O2 Delivery O2 Flow Rate FiO2 06/03/18 09:32 97.7 06/03/18 08:33 97.7 06/03/18 08:15 Room Air 06/03/18 08:00 97.3 73 18 109/50 (69) 92 97.3 18 06/03/18 04:00 97.7 72 20 107/50 (69) 92 97.7 06/03/18 00:00 97.2 71 20 115/57 (76) 91 97.2 06/02/18 20:00 Room Air 06/02/18 20:00 97.0 78 20 121/57 (78) 92 97.0 06/02/18 16:00 97.7 81 18 128/73 (91) 93 97.7 81 06/02/18 16:00 Room Air 06/02/18 12:00 97.2 70 20 123/59 (80) 92 97.2 06/02/18 12:00 Room Air 06/02/18 12:00 77 General Appearance: no apparent distress, alert EENT: PERRL/EOMI, normal ENT inspection Neck: non-tender, normal alignment, supple, normal inspection, no JVD Rhythm: NSR Cardiovascular: normal peripheral pulses, normal rate, regular rhythm, no gallop/murmur Respiratory/Chest: chest wall non-tender, lungs clear Abdomen: normal bowel sounds, non tender, soft, no organomegaly Extremities: normal range of motion, non-tender 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 Jun 03, 2018 11:32
[2018-06-03 12:00] VITALS: BP 110/46
--- NOTE | 2018-06-03 12:31 | General Progress Note ---
Assessment/Plan Assessment/Plan 1. Major depressive disorder. 2. Encephalopathy due to general medical condition. PLAN: 1. The patient will be continued on trazodone 50 mg. 2. Provide the patient with supportive therapy and reality orientation. Subjective Neurologic/Psychiatric: Reports: anxiety, depressed, emotional problems Allergies: Coded Allergies: No Known Allergies (Unverified , 05/30/18) Subjective the patient is disorganized and anxious Objective Last 24 Hour Vital Signs Date Time Temp Pulse Resp B/P (MAP) Pulse Ox O2 Delivery O2 Flow Rate FiO2 06/03/18 12:00 97.2 77 18 110/46 (67) 93 97.2 77 06/03/18 09:32 97.7 06/03/18 08:33 97.7 06/03/18 08:15 Room Air 06/03/18 08:00 97.3 73 18 109/50 (69) 92 97.3 18 06/03/18 04:00 97.7 72 20 107/50 (69) 92 97.7 06/03/18 00:00 97.2 71 20 115/57 (76) 91 97.2 06/02/18 20:00 Room Air 06/02/18 20:00 97.0 78 20 121/57 (78) 92 97.0 06/02/18 16:00 97.7 81 18 128/73 (91) 93 97.7 81 06/02/18 16:00 Room Air Intake and Output 06/02/18 06/03/18 19:00 07:00 Intake Total 720 ml 120 ml Output Total 350 ml Balance 370 ml 120 ml Intake Oral 720 ml 120 ml Output Urine Total 350 ml # Voids 1 Height (Feet): 5 Height (Inches): 5.00 Weight (Pounds): 160 General Appearance: no apparent distress, alert, confused Billy Zamorano MD Jun 03, 2018 12:31
--- NOTE | 2018-06-03 13:13 | Discharge Summary ---
Discharge Summary Hospital Course Date of Admission May 30, 2018 at 17:29 Date of Discharge Admitting Diagnosis multiple falls/chorea HPI Vaishnavi Plata is a 83 year old female who was admitted on May 30, 2018 at 17:29 for Multiple Falls/Chorea She has aPMH of recurrent falls and hypothyroidism and presented from [facility] for fall and "jerky movements". Patient stated that she slid out of the bed but did not have any trauma to the head. Per fpc, patient has been having recurrent falls and gait imbalance. Patient noted that she has never been diagnosed with Parkinson's Disease. Reported headache 01/22. Denied n/v, f/c , cp, sob, abdominal pain, focal deficits. She was admitted for workup of encephalopathy Consultations Neurology Cardiology Procedures EEG Hospital Course Neurology consulted and EEG obtained No signs for seizure Cardiology consulted as well given troponin elevation and she was deemed stable for stress test as outpatient She was treated for a positive UA with IV ceftriazone She improved with the therapies and was stable for discharge back to SNF I spent 40 minutes on day of discharge conducting, performing and coordinating discharge activities for this patient Discharge Medications Continued Medications: Acetaminophen* (Tylenol Extra Strength*) 500 Mg Tablet 500 MG ORAL Q8H PRN for Prn Headache/Temp > 101, #30 TAB 0 Refills (This prescription has been renewed) Bisacodyl* (Dulcolax*) 5 Mg Tablet.dr 10 MG RECTAL DAILY PRN for Constipation, #10 TAB 0 Refills (This prescription has been renewed) Calcium Carbonate/Vitamin D3 (Calcium 600 + Vit D 200 Tablet) 1 Each Tablet 1 EACH PO, TAB (This prescription has been renewed) Diphenhydramine HCl (Humaira-Dryl) 25 Mg Tablet 25 MG PO QHS PRN for Allergic Rhinitis, TAB (This prescription has been renewed) Docusate Sodium* (Colace*) 100 Mg Capsule 100 MG ORAL TWICE A DAY, CAP (This prescription has been renewed) Famotidine (Pepcid Ac) 20 Mg Tablet 20 MG PO Q12HR, TAB (This prescription has been renewed) Ferrous Sulfate (Iron) 325 Mg Tablet 325 MG PO, TAB (This prescription has been renewed) Levothyroxine Sodium* (Levothyroxine Sodium*) 125 Mcg Tablet 125 MCG ORAL ACBREAKFAST, TAB (This prescription has been renewed) Take in the morning on an empty stomach, at least 30 minutes before food. Naproxen* (Naprosyn*) 250 Mg Tablet 500 MG ORAL TWICE A DAY PRN for For Pain, #60 TAB 0 Refills (This prescription has been renewed) Ondansetron* (Zofran*) 4 Mg Tablet 4 MG ORAL Q6H PRN for Nausea & Vomiting, TAB (This prescription has been renewed ) Pregabalin* (Lyrica*) 75 Mg Capsule 75 MG ORAL Q12HR, CAP (This prescription has been renewed) Trazodone Hcl* (Desyrel*) 50 Mg Tablet 50 MG ORAL BEDTIME PRN for Insomnia, TAB (This prescription has been renewed) Discontinued Medications: Acetaminophen* (Tylenol Extra Strength*) 500 Mg Tablet 500 MG ORAL Q8H PRN for For Pain, #30 TAB 0 Refills Acetaminophen* (Acetaminophen 325MG Tablet*) 325 Mg Tablet 650 MG ORAL Q6H PRN for Mild Pain/Temp > 100.5, TAB Discharge Condition Upon Discharge: improving Discharge Disposition Patient was discharged to SNF/Subacute Facility(03) Discharge Diagnoses: (1) Jerky body movements (2) Hypothyroidism (3) Toxic metabolic encephalopathy Man Rose M.D. Jun 03, 2018 13:13
[2018-06-03] MEDS ORDERED: Tubing IV Secondary IV ONE (14:59)
[2018-06-03] MEDS ORDERED: NS 275ml ONE (14:59)
--- NOTE | 2018-06-04 10:21 | Cardiology Report ---
APPROVED REPORT EXAM: Two-dimensional and M-mode echocardiogram with Doppler and color Doppler. INDICATION Elevated Troponin M-Mode DIMENSIONS IVSd0.9 (0.7-1.1cm)Left Atrium (MM)3.2 (1.6-4.0cm) LVDd4.5 (3.5-5.6cm)Aortic Root3.3 (2.0-3.7cm) PWd0.8 (0.7-1.1cm)Aortic Cusp Exc.1.5 (1.5-2.0cm) LVDs2.6 (2.5-4.0cm) PWs1.6 cm Technically difficult and limited study due to poor acoustic windows and patients breathing. Study quality precludes accurate assessment of regional wall motion. Normal left ventricular chamber size, systolic function and wall motion to extent visualized. Left ventricular ejection fraction estimated to be grossly normal. No evidence of left ventricular hypertrophy. Anterior Echo-free space, may be due to pericardial fat or effusion. All other cardiac chamber sizes appear to be within normal limits. Mild focal aortic valve sclerosis with adequate cusp excursion. Mildly thickened mitral valve leaflets with normal excursion. Mild mitral annulus and aortic root calcification. Pulmonic valve not visualized. Normal tricuspid valve structure. IVC dilated at 2.2 cm with physiological collapse, suggestive of increased RA pressure. A color flow and spectral Doppler study was performed and revealed: No aortic insufficiency. No mitral regurgitation. Mitral diastolic velocities suggest mild left ventricular diastolic dysfunction (Grade I). No tricuspid regurgitation. Tricuspid systolic velocities suggests peak right ventricular systolic pressure of 20 mmHg.
--- NOTE | 2018-06-07 00:53 | Cardiology Report ---
APPROVED REPORT EKG Measurement Heart [id number] Normal sinus rhythm Normal ECG
== END 2018-06-03 15:00 | DRG 91 ==
LOC: EDBD 15:28 → EMR 17:26 → 2W 17:29 → EDBEDREQSVC 17:42 → EDBEDREQ 17:42 → 2W 06-02 12:44 → 4W 06-02 15:58
DX: G92 Toxic encephalopathy (principal); I21.4 Non-ST elevation (NSTEMI) myocardial infarction; N39.0 Urinary tract infection, site not specified; I69.351 Hemiplegia and hemiparesis following cerebral infarction affecting right dominant side; G82.20 Paraplegia, unspecified; E03.9 Hypothyroidism, unspecified; R51 Headache; F32.9 Major depressive disorder, single episode, unspecified; G31.84 Mild cognitive impairment of uncertain or unknown etiology; R25.8 Other abnormal involuntary movements; R29.6 Repeated falls; R47.81 Slurred speech
CPT/HCPCS: 36415; 70450; 71045; 80048; 80053; 80307; 80329; 81003; 82140; 82306; 82550; 82607; 82746; 83036; 83605; 83735; 84443; 84484; 85025; 85651; 86592; 87081; 87086; 93005; 93306; 93880; 93882; 95819